=== PATIENT | female | born 1955 | race Caucasian/White ===

== ENCOUNTER 2017-04-02 12:14 | Inpatient (IN) | payer MEDICARE, MEDICAID ==
[~2017-04-02] VITALS: Ht 162.6 cm; Wt 88.9 kg
[~2017-04-02 12:14] MED LIST: BUPR150T20 PO; DOXE50CA PO; FLUO20TA25 PO; GABA300C10 PO; LISI-170 PO; METF10002 PO; OMEP-110 PO; SIMV20TA3 PO; TEMA7.5C PO
[2017-04-02] MEDS ORDERED: SODIUM CHLORIDE 0.9% 1,000 ML IV ONE (13:08)
[2017-04-02] MEDS ORDERED: ONDANSETRON 2MG/ML, 2ML ONE (13:13)
[2017-04-02] MEDS ORDERED: MORPHINE SULFATE 4 MG/ML, 1ML ONE ×2 (13:13→14:04)
[2017-04-02] MEDS: MORPHINE SULFATE 4 MG/ML, 1ML IVPush PRN ×2 (13:17→14:21)
[2017-04-02] MEDS ORDERED: SODIUM CHLORIDE FLUSH 10ML SYR IVF ONE (13:30)
[2017-04-02] MEDS ORDERED: SODIUM CHLORIDE 0.9% 1,000ML IVBOLUS ONE (13:30)
[2017-04-02] MEDS ORDERED: ONDANSETRON 2MG/ML, 2ML IVPush ONE (13:30)
[2017-04-02 13:32] LABS: HEMATOCRIT 33.8 % (34.6-47.8); HEMOGLOBIN 10.5 g/dL (11.7-16.4); WHITE BLOOD COUNT 10.1 x10^3/uL (3.4-10)
[2017-04-02 13:46] LABS: ASPARTATE AMINO TRANSFERASE 22 U/L (15-37); BLOOD UREA NITROGEN 13 mg/dL (7-18)
[2017-04-02] MEDS ORDERED: ENALAPRILAT 1.25 MG/ML, 2ML IVPush PRN (16:30)
[2017-04-02] MEDS ORDERED: LABETALOL 5MG/ML, 20ML IVPush PRN (16:30)
[2017-04-02] MEDS ORDERED: BISACODYL 10 MG SUPP PR PRN (16:30)
[2017-04-02] MEDS ORDERED: HEPARIN 5,000 UNITS/ML, 1ML SQ SCH (16:30)
[2017-04-02] MEDS ORDERED: DOCUSATE 100 MG CAPSULE PO PRN (16:30)
[2017-04-02] MEDS: NICOTINE 7 MG/24 HR PATCH.TD24 TD SCH (16:30)
[2017-04-02] MEDS ORDERED: POLYETHYLENE GLYCOL 17 GM PACKET PO PRN (16:30)
[2017-04-02] MEDS ORDERED: OXYcodone/APAP 5/325MG TABLET ONE (16:52)
[2017-04-02] MEDS: OXYcodone/APAP 5/325MG TABLET PO PRN ×3 (16:54→23:06)
[2017-04-02] MEDS ORDERED: OMNIPAQUE 350 MG/ML, 100ML BOTTLE ONE (19:54)
[2017-04-02 20:00] VITALS: BP 167/105
[2017-04-02] MEDS: GABAPENTIN 300 MG CAPSULE PO SCH (20:21)
[2017-04-02] MEDS: LACTULOSE 20 GM/30 ML UDC PO SCH (20:21)
[2017-04-02] MEDS: NS + 20MEQ KCL 1,000 ML IV SCH (20:21)
[2017-04-02] MEDS: LISINOPRIL 20 MG TABLET PO SCH (20:22)
[2017-04-02] MEDS: SIMVASTATIN 20 MG TABLET PO SCH (20:22)
[2017-04-02] MEDS: LORazepam 1MG TABLET PO PRN (22:33)
[2017-04-02] MEDS ORDERED: HEPARIN 5,000 UNITS/ML, 1ML IV ONE (23:00)
[2017-04-02] MEDS: HEPARIN 25,000 UNITS/500ML PMX 500 ML IV PRN (23:05)
[2017-04-03 01:52] VITALS: BP 167/105
[2017-04-03 02:00] VITALS: BP 130/77
[2017-04-03] MEDS: LORazepam 1MG TABLET PO PRN ×2 (02:57→20:47)
[2017-04-03] MEDS: NS + 20MEQ KCL 1,000 ML IV SCH ×2 (06:30→17:51)
[2017-04-03 06:39] LABS: HEMATOCRIT 35.7 % (34.6-47.8); HEMOGLOBIN 11.1 g/dL (11.7-16.4); WHITE BLOOD COUNT 17.1 x10^3/uL (3.4-10)
[2017-04-03 06:45] VITALS: BP 134/79
[2017-04-03 06:47] LABS: ASPARTATE AMINO TRANSFERASE 27 U/L (15-37); BLOOD UREA NITROGEN 13 mg/dL (7-18)
[2017-04-03 07:08] LABS: DIFF TOTAL CELLS COUNTED 100 CELL DIFF
[2017-04-03 07:10] LABS: ANISOCYTOSIS 1+; MICROCYTOSIS 1+; POLYCHROMASIA 1+; VERIFY COUNTS? YES
[2017-04-03 07:11] LABS: OVALOCYTES 1+; SCHISTOCYTES 1+
[2017-04-03 07:12] LABS: TARGET CELLS 1+
[2017-04-03] MEDS: OXYcodone/APAP 5/325MG TABLET PO PRN ×2 (07:32→20:47)
[2017-04-03] MEDS ORDERED: TEMAZEPAM 7.5 MG PO SCH (09:00)
[2017-04-03] MEDS ORDERED: DOXEPIN 25 MG CAPSULE PO SCH (09:00)
[2017-04-03] MEDS: LACTULOSE 20 GM/30 ML UDC PO SCH ×2 (09:43→20:49)
[2017-04-03] MEDS: GABAPENTIN 300 MG CAPSULE PO SCH ×3 (09:46→20:46)
[2017-04-03 10:00] VITALS: BP 131/78
[2017-04-03] MEDS: BUPROPION SR 150 MG TABLET PO SCH (10:01)
[2017-04-03] MEDS: FLUOXETINE 20 MG CAPSULE PO SCH (10:02)
[2017-04-03] MEDS: LISINOPRIL 20 MG TABLET PO SCH ×2 (10:02→20:49)
[2017-04-03] MEDS: OMEPRAZOLE 20 MG CAPSULE.DR PO SCH (10:02)
[2017-04-03 12:52] VITALS: BP 98/63
[2017-04-03] MEDS: HEPARIN 5,000 UNITS/ML, 1ML IV PRN ×2 (14:49→22:38)
[2017-04-03] MEDS: POTASSIUM CHLORIDE 20 MEQ TAB.ER.PRT PO ONE ×2 (16:00→17:52)
[2017-04-03] MEDS: NICOTINE 7 MG/24 HR PATCH.TD24 TD SCH (16:30)
[2017-04-03 20:00] VITALS: BP 126/81
[2017-04-03] MEDS: SIMVASTATIN 20 MG TABLET PO SCH (20:47)
[2017-04-03] MEDS: HYDROCORTISONE 25 MG SUPP PR PRN (20:50)
[2017-04-03] MEDS: HEPARIN 25,000 UNITS/500ML PMX 500 ML IV PRN (22:40)
[2017-04-04 02:00] VITALS: BP 120/73
[2017-04-04 05:08] LABS: HEMATOCRIT 31.9 % (34.6-47.8); WHITE BLOOD COUNT 9.1 x10^3/uL (3.4-10)
[2017-04-04 05:39] LABS: ASPARTATE AMINO TRANSFERASE 32 U/L (15-37); BLOOD UREA NITROGEN 13 mg/dL (7-18)
[2017-04-04] MEDS: NS + 20MEQ KCL 1,000 ML IV SCH ×2 (05:57→16:08)
[2017-04-04] MEDS: HEPARIN 5,000 UNITS/ML, 1ML IV PRN ×2 (05:58→18:59)
[2017-04-04] MEDS: LORazepam 1MG TABLET PO PRN (06:43)
[2017-04-04 06:55] VITALS: BP 138/79
[2017-04-04] MEDS ORDERED: TEMAZEPAM 7.5 MG PO SCH (09:00)
[2017-04-04] MEDS: LACTULOSE 20 GM/30 ML UDC PO SCH ×2 (09:00→21:19)
[2017-04-04] MEDS: OMEPRAZOLE 20 MG CAPSULE.DR PO SCH (11:14)
[2017-04-04] MEDS: LISINOPRIL 20 MG TABLET PO SCH ×2 (11:14→21:19)
[2017-04-04] MEDS: BUPROPION SR 150 MG TABLET PO SCH (11:14)
[2017-04-04] MEDS: GABAPENTIN 300 MG CAPSULE PO SCH ×3 (11:14→21:19)
[2017-04-04] MEDS: FLUOXETINE 20 MG CAPSULE PO SCH (11:15)
[2017-04-04 12:05] VITALS: BP 112/66
[2017-04-04] MEDS: HYDROCORTISONE 25 MG SUPP PR PRN (16:08)
[2017-04-04] MEDS: NICOTINE 7 MG/24 HR PATCH.TD24 TD SCH (16:13)
[2017-04-04] MEDS ORDERED: FERR325T5 PO (18:20)
[2017-04-04] MEDS ORDERED: METH750T2 PO (18:20)
[2017-04-04] MEDS ORDERED: OXYC5CAP2 PO (18:20)
[2017-04-04] MEDS ORDERED: ALBU18HF PO (18:20)
[2017-04-04] MEDS ORDERED: SPIR100T2 PO (18:20)
[2017-04-04 20:00] VITALS: BP 136/81
[2017-04-04] MEDS: SIMVASTATIN 20 MG TABLET PO SCH (21:19)
[2017-04-04] MEDS: DOXEPIN 25 MG CAPSULE PO SCH (21:20)
[2017-04-04] MEDS: OXYcodone/APAP 5/325MG TABLET PO PRN (21:21)
[2017-04-04] MEDS: TEMAZEPAM 15 MG CAPSULE PO SCH (21:30)
[2017-04-05] MEDS: HEPARIN 5,000 UNITS/ML, 1ML IV PRN (01:45)
[2017-04-05 01:53] VITALS: BP 118/65
[2017-04-05] MEDS: HEPARIN 25,000 UNITS/500ML PMX 500 ML IV PRN ×2 (01:58→18:10)
[2017-04-05 07:12] VITALS: BP 114/76
[2017-04-05] MEDS: LISINOPRIL 20 MG TABLET PO SCH ×4 (09:00→20:17)
[2017-04-05] MEDS: OMEPRAZOLE 20 MG CAPSULE.DR PO SCH (10:41)
[2017-04-05] MEDS: LACTULOSE 20 GM/30 ML UDC PO SCH ×3 (10:41→20:18)
[2017-04-05] MEDS: GABAPENTIN 300 MG CAPSULE PO SCH ×3 (10:41→20:17)
[2017-04-05] MEDS: FLUOXETINE 20 MG CAPSULE PO SCH (10:41)
[2017-04-05] MEDS: BUPROPION SR 150 MG TABLET PO SCH (10:42)
[2017-04-05 12:46] VITALS: BP 145/87
[2017-04-05] MEDS: NICOTINE 7 MG/24 HR PATCH.TD24 TD SCH (16:30)
[2017-04-05] MEDS: LORazepam 1MG TABLET PO PRN (16:46)
[2017-04-05 19:00] VITALS: BP 132/82
[2017-04-05] MEDS: FERROUS GLUCONATE 324 MG TABLET PO SCH (20:17)
[2017-04-05] MEDS: SIMVASTATIN 20 MG TABLET PO SCH (20:17)
[2017-04-05] MEDS: DOXEPIN 25 MG CAPSULE PO SCH (20:18)
[2017-04-05] MEDS: TEMAZEPAM 15 MG CAPSULE PO SCH (20:59)
[2017-04-06 00:27] VITALS: BP 107/69
[2017-04-06 05:40] LABS: HEMATOCRIT 29.9 % (34.6-47.8); HEMOGLOBIN 9.4 g/dL (11.7-16.4); WHITE BLOOD COUNT 7.7 x10^3/uL (3.4-10)
[2017-04-06 06:05] LABS: BLOOD UREA NITROGEN 10 mg/dL (7-18)
[2017-04-06] MEDS: HEPARIN 25,000 UNITS/500ML PMX 500 ML IV PRN ×2 (06:29→21:26)
[2017-04-06 07:00] VITALS: BP 119/74
[2017-04-06] MEDS: OMEPRAZOLE 20 MG CAPSULE.DR PO SCH (09:15)
[2017-04-06] MEDS: BUPROPION SR 150 MG TABLET PO SCH (09:16)
[2017-04-06] MEDS: FLUOXETINE 20 MG CAPSULE PO SCH (09:16)
[2017-04-06] MEDS: LISINOPRIL 20 MG TABLET PO SCH ×3 (09:16→21:00)
[2017-04-06] MEDS: GABAPENTIN 300 MG CAPSULE PO SCH ×3 (09:16→20:47)
[2017-04-06] MEDS: FERROUS GLUCONATE 324 MG TABLET PO SCH ×2 (09:16→17:12)
[2017-04-06] MEDS: LACTULOSE 20 GM/30 ML UDC PO SCH ×2 (09:17→18:00)
[2017-04-06] MEDS: ONDANSETRON ODT 4 MG PO PRN (09:30)
[2017-04-06 14:01] VITALS: BP 122/78
[2017-04-06] MEDS: NICOTINE 7 MG/24 HR PATCH.TD24 TD SCH (16:30)
[2017-04-06 18:58] VITALS: BP 113/71
[2017-04-06] MEDS: SIMVASTATIN 20 MG TABLET PO SCH (20:47)
[2017-04-06] MEDS: TEMAZEPAM 15 MG CAPSULE PO SCH (20:47)
[2017-04-06] MEDS: DOXEPIN 25 MG CAPSULE PO SCH (20:47)
[2017-04-07 03:33] VITALS: BP 102/74
[2017-04-07 05:41] LABS: HEMATOCRIT 29.9 % (34.6-47.8); HEMOGLOBIN 9.4 g/dL (11.7-16.4); WHITE BLOOD COUNT 6.5 x10^3/uL (3.4-10)
[2017-04-07] MEDS: LACTULOSE 20 GM/30 ML UDC PO SCH ×2 (06:33→17:28)
[2017-04-07 08:00] VITALS: BP 93/44
[2017-04-07] MEDS: BUPROPION SR 150 MG TABLET PO SCH (09:00)
[2017-04-07] MEDS: LISINOPRIL 20 MG TABLET PO SCH ×2 (09:00→10:00)
[2017-04-07] MEDS: FLUOXETINE 20 MG CAPSULE PO SCH (09:00)
[2017-04-07 09:53] VITALS: BP 97/63
[2017-04-07 09:59] VITALS: BP 105/68
[2017-04-07] MEDS: FERROUS GLUCONATE 324 MG TABLET PO SCH ×2 (10:00→17:28)
[2017-04-07] MEDS: GABAPENTIN 300 MG CAPSULE PO SCH ×3 (10:01→20:30)
[2017-04-07] MEDS: OMEPRAZOLE 20 MG CAPSULE.DR PO SCH (10:01)
[2017-04-07] MEDS: OXYcodone/APAP 5/325MG TABLET PO PRN (13:33)
[2017-04-07 13:39] VITALS: BP 99/66
[2017-04-07] MEDS: HEPARIN 25,000 UNITS/500ML PMX 500 ML IV PRN (13:48)
[2017-04-07] MEDS: NICOTINE 7 MG/24 HR PATCH.TD24 TD SCH (15:33)
[2017-04-07 18:24] VITALS: BP 105/66
[2017-04-07] MEDS: TEMAZEPAM 15 MG CAPSULE PO SCH (20:29)
[2017-04-07] MEDS: DOXEPIN 25 MG CAPSULE PO SCH (20:29)
[2017-04-07] MEDS: SIMVASTATIN 20 MG TABLET PO SCH (20:29)
[2017-04-07] MEDS: LISINOPRIL 10 MG TABLET PO SCH (20:30)
[2017-04-08 02:13] VITALS: BP 97/64
[2017-04-08] MEDS: HEPARIN 25,000 UNITS/500ML PMX 500 ML IV PRN ×2 (04:26→16:02)
[2017-04-08 05:24] LABS: HEMATOCRIT 30.1 % (34.6-47.8); HEMOGLOBIN 9.5 g/dL (11.7-16.4)
[2017-04-08] MEDS: LACTULOSE 20 GM/30 ML UDC PO SCH ×2 (06:29→17:00)
[2017-04-08 07:16] VITALS: BP 108/68
[2017-04-08] MEDS: FLUOXETINE 20 MG CAPSULE PO SCH (07:37)
[2017-04-08] MEDS: OMEPRAZOLE 20 MG CAPSULE.DR PO SCH (07:37)
[2017-04-08] MEDS: GABAPENTIN 300 MG CAPSULE PO SCH ×3 (07:37→20:58)
[2017-04-08] MEDS: FERROUS GLUCONATE 324 MG TABLET PO SCH (07:37)
[2017-04-08] MEDS: LISINOPRIL 10 MG TABLET PO SCH ×2 (07:37→20:58)
[2017-04-08] MEDS: BUPROPION SR 150 MG TABLET PO SCH (07:38)
[2017-04-08] MEDS: OXYcodone/APAP 5/325MG TABLET PO PRN (10:36)
[2017-04-08] MEDS: RIFAXIMIN 550 MG TABLET PO SCH ×2 (10:36→20:59)
[2017-04-08 12:20] VITALS: BP 105/66
[2017-04-08] MEDS: NICOTINE 7 MG/24 HR PATCH.TD24 TD SCH (15:36)
[2017-04-08] MEDS: ONDANSETRON ODT 4 MG PO PRN (15:38)
[2017-04-08 19:14] VITALS: BP 101/68
[2017-04-08] MEDS: SIMVASTATIN 20 MG TABLET PO SCH (20:59)
[2017-04-08] MEDS: TEMAZEPAM 15 MG CAPSULE PO SCH (20:59)
[2017-04-08] MEDS: DOXEPIN 25 MG CAPSULE PO SCH (20:59)
[2017-04-09 02:15] VITALS: BP 101/64
[2017-04-09 05:09] LABS: ANTI-Xa-UNFRACTIONATED HEP 0.6 IU/mL (0.30-0.70)
[2017-04-09 05:10] LABS: HEMOGLOBIN 9.5 g/dL (11.7-16.4); WHITE BLOOD COUNT 5.5 x10^3/uL (3.4-10)
[2017-04-09] MEDS: HEPARIN 25,000 UNITS/500ML PMX 500 ML IV PRN (05:23)
[2017-04-09 05:43] LABS: ASPARTATE AMINO TRANSFERASE 30 U/L (15-37); BLOOD UREA NITROGEN 8 mg/dL (7-18); TOTAL IRON BINDING CAPACITY 228 mcg/dL (250-450)
[2017-04-09] MEDS: LACTULOSE 20 GM/30 ML UDC PO SCH (05:47)
[2017-04-09 06:20] LABS: ANISOCYTOSIS 2+
[2017-04-09 06:21] LABS: HYPOCHROMIA 1+; OVALOCYTES 1+; POLYCHROMASIA 1+; SCHISTOCYTES 1+; TARGET CELLS 1+
[2017-04-09 06:25] LABS: MICROCYTOSIS 2+
[2017-04-09 06:36] VITALS: BP 110/68
[2017-04-09] MEDS: BUPROPION SR 150 MG TABLET PO SCH (09:00)
[2017-04-09] MEDS: FLUOXETINE 20 MG CAPSULE PO SCH (09:00)
[2017-04-09] MEDS: OMEPRAZOLE 20 MG CAPSULE.DR PO SCH (09:38)
[2017-04-09] MEDS: OXYcodone/APAP 5/325MG TABLET PO PRN (09:38)
[2017-04-09] MEDS: GABAPENTIN 300 MG CAPSULE PO SCH (09:38)
[2017-04-09] MEDS: RIFAXIMIN 550 MG TABLET PO SCH (09:38)
[2017-04-09] MEDS: LISINOPRIL 10 MG TABLET PO SCH (09:40)
[2017-04-09] MEDS ORDERED: RIFA550T4 PO (13:03)
[2017-04-09] MEDS ORDERED: LACT20SO13 PO (13:03)
[2017-04-09] MEDS ORDERED: DOCU-131 PO (13:03)
== END 2017-04-09 15:15 | disposition home or self-care (01) | DRG 441 ==
LOC: ED 15:40 → EDIP 15:42 → INTOOBSV 15:42 → 4EST 18:31 → OBSVTOIN 04-03 14:59 → DCLOUNGE 04-09 14:30
PROVIDERS: ADMIT Hospitalist; ATTEND Hospitalist
DX: I81 Portal vein thrombosis (principal); K72.00 Acute and subacute hepatic failure without coma; E87.1 Hypo-osmolality and hyponatremia; I10 Essential (primary) hypertension; E11.9 Type 2 diabetes mellitus without complications; D50.0 Iron deficiency anemia secondary to blood loss (chronic); R10.9 Unspecified abdominal pain; E87.6 Hypokalemia; G89.29 Other chronic pain; K74.60 Unspecified cirrhosis of liver; E66.9 Obesity, unspecified; G47.00 Insomnia, unspecified; K43.9 Ventral hernia without obstruction or gangrene; F17.200 Nicotine dependence, unspecified, uncomplicated; F43.10 Post-traumatic stress disorder, unspecified; F32.9 Major depressive disorder, single episode, unspecified; Z68.33 Body mass index [BMI] 33.0-33.9, adult; Z79.01 Long term (current) use of anticoagulants; Z91.410 Personal history of adult physical and sexual abuse; Z98.84 Bariatric surgery status
CPT/HCPCS: 36415; 74022; 74177; 80048; 80053; 80061; 81003; 82105; 82140; 82607; 82728; 82746; 83540; 83550; 83605; 83690; 83735; 84100; 84443; 85014; 85018; 85025; 85520; 85610; 87324; 93005; 96372; 96374; 96375; 96376; G0378; J1644; J2405; J3480; Q0162; Q9967; J7030

== ENCOUNTER 2017-05-08 06:48 | Emergency (ER) | payer MEDICARE, MEDICAID ==
[~2017-05-08] VITALS: Ht 162.6 cm; Wt 93.4 kg
[~2017-05-08 06:48] MED LIST changes: +ALBU18HF PO; +DOCU-131 PO; +FERR325T5 PO; +LACT20SO13 PO; +METH750T2 PO; +OXYC5CAP2 PO; +RIFA550T4 PO; +SPIR100T2 PO
[2017-05-08] MEDS ORDERED: LIDOCAINE 1%, 20ML ONE (07:47)
[2017-05-08 08:11] LABS: ASPARTATE AMINO TRANSFERASE 29 U/L (15-37); BLOOD UREA NITROGEN 10 mg/dL (7-18)
[2017-05-08 08:26] LABS: HEMATOCRIT 29.4 % (34.6-47.8); HEMOGLOBIN 9.5 g/dL (11.7-16.4); WHITE BLOOD COUNT 4.2 x10^3/uL (3.4-10)
[2017-05-08 08:29] LABS: DIFF TOTAL CELLS COUNTED 100 CELL DIFF
[2017-05-08 08:32] LABS: ANISOCYTOSIS 2+; HYPOCHROMIA 1+; MICROCYTOSIS 2+; OVALOCYTES 1+; POLYCHROMASIA 1+; SCHISTOCYTES 1+; TARGET CELLS 1+
[2017-05-08 08:46] LABS: VERIFY COUNTS? YES
[2017-05-08 11:32] VITALS: BP 126/74
== END 2017-05-08 11:34 | disposition home or self-care (01) ==
LOC: ED 09:51
DX: K70.31 Alcoholic cirrhosis of liver with ascites (principal); I10 Essential (primary) hypertension; E11.9 Type 2 diabetes mellitus without complications
CPT/HCPCS: 36415; 49083; 80053; 82042; 83615; 83690; 85025; 85610; 85730; 87070; 87205; 89051; 93005; 99285; J3490